=== PATIENT | female | born 1955 | race Caucasian/White ===

== ENCOUNTER → 2016-09-03 | Outpatient (CLI) | payer BC ==
[~2016-09-03] MED LIST: ALEN70TA2 PO; ASPI1TAB72 PO; CALC-191 PO; MELA1TAB21 PO; [UNRECOGNIZED DRUG - CODE] PO
--- NOTE | 2016-09-03 12:34 | DI ---
Indication: ITS.REASON: J98.4 Other disorders of lung PROCEDURE: CT CHEST W/O CONTRAST: Encounter: Initial Comparison: CT chest dated August 08, 2015 Technique: Axial CT images were performed through the chest without intravenous contrast. Coronal and sagittal two-dimensional reformats. Automated Exposure Control and Iterative Reconstruction dose reducing techniques were utilized. Findings: Severe emphysema is again seen with bilateral apical pleural thickening and scarring. Subpleural fibrosis and honeycombing seen in both lower lobes without significant change. No consolidative pneumonia, pleural effusion or pneumothorax. No discrete pulmonary nodule or mass. The central airways are patent. The prior nodular foci within the trachea and mainstem bronchi have resolved. No axillary or mediastinal adenopathy. Heart size is unchanged. Three vessel coronary artery disease. No pericardial effusion. The upper abdomen shows no acute findings. Bone windows are unchanged. Impression: Interval resolution of the prior nodular foci within the trachea and proximal mainstem bronchi. Otherwise, stable appearance of the chest with severe emphysema. .
== END ==
LOC: IMA 11:04
PROVIDERS: ATTEND Internal Medicine Sleep Medicine
DX: J43.8 Other emphysema (principal); J98.4 Other disorders of lung